=== PATIENT | female | born 1980 | race Hispanic/Latino ===

== ENCOUNTER 2019-06-28 15:49 | Inpatient (IN) ==
[2019-06-28] MEDS ORDERED: FENTANYL IV ONE (16:05)
[2019-06-28] MEDS ORDERED: ZOFRAN IV ONE (16:05)
[2019-06-28] MEDS ORDERED: NS 1,000 ML IV ONE (16:10)
[2019-06-28] MEDS ORDERED: PROTONIX 80 MG in NS 80 ML IV ONE ×2 (16:11→17:00)
[2019-06-28] MEDS ORDERED: PROTONIX 80 MG in NS 80 ML IV SCH (16:15)
[2019-06-28] MEDS ORDERED: SANDOSTATIN 500 MICROGM in D5W 100 ML IV SCH (16:15)
[2019-06-28] MEDS: NS 1,000 ML IV ONE ×2 (16:34→17:03)
[2019-06-28 16:35] LABS: URINE SOURCE CLEAN CATCH
[2019-06-28 16:55] LABS: INR 1.15; PROTIME 15.3 Seconds (11.0-16.0)
[2019-06-28 16:56] LABS: PTT 29.7 Seconds (22.3-41.8)
[2019-06-28 17:07] LABS: BASO# 0.02 X1000 (0.0-0.2); BASO% 0.4 % (0.0-0.8); EOS% 14.6 % (0.0-10.0); HEMOGLOBIN 8.2 g/dL (12.0-16.0); IMM GRAN# 0.01 X1000 (0.0-0.04); IMM GRAN% 0.2 % (0.0-0.5); LYMPH# 0.75 X1000 (1.2-3.4); LYMPH% 13.7 % (20.5-51.1); MCH 29.9 PG (27-31); MCHC 30.4 g/dL (33-37); MCV 98.5 FL (81-99); MONO# 0.34 X1000 (0.11-0.59); MONO% 6.2 % (1.7-9.3); MPV 10.7 FL (7.4-10.4); NEUT# 3.55 X1000 (1.4-6.5); NEUT% 64.9 % (42.2-75.2); PLT 57 X1000 (130-400); RBC 2.74 XMIL (4.2-5.4); RDW 14.9 % (11.5-14.5); WBC 5.47 X1000 (4.8-10.8)
[2019-06-28 17:10] LABS: COLOR YELLOW
[2019-06-28 17:11] LABS: BILIRUBIN URINE NEGATIVE (NEGATIVE); BLOOD URINE NEGATIVE (NEGATIVE); GLUCOSE URINE NEGATIVE (NEGATIVE); KETONE URINE 60 mg/dL (NEGATIVE); PH URINE 6.5; PROTEIN URINE TRACE mg/dL (NEGATIVE); SP GRAVITY URINE 1.015; TURBIDITY URINE CLEAR (CLEAR); UROBILINOGEN URINE 2 mg/dL (NORMAL)
[2019-06-28 17:12] LABS: LEUKOCYTES URINE TRACE (NEGATIVE); NITRITE URINE NEGATIVE (NEGATIVE); UR EPITHELIAL CELLS <10 /HPF (<10); URINE BACTERIA 1+ /HPF; URINE WBC <10 /HPF (<10)
[2019-06-28 17:17] LABS: OCCULT BLOOD 1 POSITIVE (NEGATIVE)
[2019-06-28 17:17] LABS: AGAP 11; ALBUMIN 3.9 g/dL (3.5-5.0); ALKALINE PHOSPHATASE 560 U/L (32-104); BUN 30 mg/dL (8-22); CALCIUM 8.6 mg/dL (8.8-10.2); CHLORIDE 108 mmol/L (98-107); COSMO 285; CREATININE 0.4 mg/dL (0.5-0.9); ESTIMATED GFR > 60; GLUCOSE 119 mg/dL (70-104); GOT 78 U/L (10-30); GPT 68 U/L (10-36); LIPASE 46 U/L (13-60); POTASSIUM 4.3 mmol/L (3.5-5.1); SODIUM 139 mmol/L (136-145); TCO2 20 mmol/L (25-35); TOTAL PROTEIN 6.7 g/dL (6.3-8.3)
--- NOTE | 2019-06-28 17:46 | PROVIDER DOCUMENTATION ---
This chart was entered by Remedios Adamson Scribe, acting as scribe for Joao William MD. HPI-Abdominal Pain/GI Problem - General Chief Complaint: Abdominal Pain Stated Complaint: ABD PAIN Time Seen by Provider: 06/28/19 15:59 Source: patient, family () Allergies/Adverse Reactions: Patient Allergies Allergy/AdvReac Type Severity Reaction Status Date / Time No Known Allergies Allergy Verified 06/28/19 15:57 - History of Present Illness-ABD Nature of Presenting Problems: Pt is a 38 yohf brought into the ed by her complaining of chest and abdominal pain. Pt has vomited x1 with coffee colored emesis today and had x2 black tar colored bowel movements since yesterday. pt states she has liver problems. Pt is alert and nontoxic in appearance. Abdominal Pain Onset Location: reports: RUQ, epigastric Pain Radiation: reports: no radiation, chest Quality of Pain: reports: aching Severity in ED: reports: mild Onset/Duration: reports: gradual, 24 hours ago Timing: reports: still present Activities at Onset: reports: light activity Associated Symptoms: reports: chest pain, vomiting (x1) Last BM: 24 hours ago Dark Stools Present?: reports: black, tarry # of Vomiting Episodes: 1 Emesis Description: reports: coffee grounds Similar Symptoms Previously?: Yes (pt sees for non-alcoholic cirrhosis of the liver) Recently seen or treated by another doctor?: Yes (was seen a couple of months ago for condition) Review of Systems - Adult - REVIEW OF SYSTEMS - ADULT Constitutional: denies: chills, fever Eyes: reports: no symptoms reported Ears, Nose, Mouth & Throat: reports: see HPI, other (esophageal varices) Cardiovascular: reports: see HPI, chest pain. denies: syncope Respiratory: reports: no symptoms reported Gastrointestinal: reports: abdominal pain, vomiting (x1), other (x2 black and tarry) Genitourinary: reports: no symptoms reported Musculoskeletal: reports: no symptoms reported Integumentary: reports: no symptoms reported Neurological: reports: see HPI. denies: syncope Psychiatric: reports: no symptoms reported Endocrine: reports: no symptoms reported Hematologic/Lymphatic: reports: no symptoms reported Allergic/Immunologic: reports: no symptoms reported All Other Systems: Reviewed and Negative Past History - Adult - PAST MEDICAL HISTORY-ADULT Review of Records: reports: Old Records Reviewed, Nursing Assessment Review, Medications Reviewed, Social history reviewed & non-contributory. Major Childhood Illnesses: reports: denies history Cardiovascular: reports: denies history Respiratory: reports: denies history Gastrointestinal: reports: liver disease (non-alcoholic cirrhosis) Genitourinary: reports: denies history Musculoskeletal: reports: chronic pain (takes Motrin to control) Neurological: reports: headaches/migraines (takes Motrin to control) Endocrine/Immune: reports: denies history Other Conditions: reports: denies history - IMMUNIZATION STATUS Childhood Immunizations: See Nurse Assessment Flu Vaccine: See Nurse Assessment - SOCIAL HISTORY Smoking: non-smoker Substance Use: denies Living Situation: family () Physical Exam-General - PHYSICAL EXAM-ADULT Initial Vital Signs Reviewed: Yes (HR 121) - CONSTITUTIONAL General Appearance: appears well, alert, no apparent distress - EYES Eyes: PERRL/EOMI, pale conjunctivae - HEAD, EARS, NOSE, MOUTH & THROAT HENMT: normocephalic/atraumatic, other (dry mucus membranes). negative: moist mucous membranes - NECK Neck: non-tender, full range of motion, supple - RESPIRATORY Respiratory: lungs clear, normal breath sounds, no pleuratic chest pain, no respiratory distress, no accessory muscle use - CARDIOVASCULAR Cardiovascular: normal peripheral pulses, regular rate, rhythm, no edema, no gallop, no JVD, no murmur, tachycardia - GASTROINTESTINAL (ABDOMEN) Abdominal Exam: soft, distended, tenderness (RUQ), other (positive fluid wave of ascites) - GENITOURINARY Rectal Exam: normal rectal tone, black stool Hemoccult Exam: heme positive stool - MUSCULOSKELETAL Back Exam: normal inspection Extremity: normal range of motion, non-tender, normal gait, normal inspection - SKIN Integumentary: normal color, normal turgor, warm/dry - NEUROLOGIC Neurologic: lens matcher II-XII nml as tested, grossly normal, no motor/sensory deficits, other (no asterixis) - PSYCHIATRIC Psych/Mental Status: normal mood/affect, normal thought content, normal thought process, oriented x 3 Progress - PLAN OF CARE/RESULTS Progress/Plan/Lab Results: Vital Signs - 8 hr 06/28/19 15:53 Temperature 98.6 F Pulse Rate 121 H Respiratory Rate 18 Blood Pressure 115/71 O2 Sat by Pulse Oximetry 100 Bedside Urine ED: Urine Bedside Start: 06/28/19 15:58 Freq: ORDERED Status: Active Protocol: Activity Type Activity Date Activity User E-Sign Co-Sign Detail Recorded Client Recorded Date Recorded By Document 06/28/19 16:11 [id number] 06/28/19 16:11 [id number] 06/28/19 16:11 Point of Care [Bedside Point of Care] -Lot # [id number] - Results Negative -Control Line Visible? Yes Orders Category Date Time Status ED: Urine Bedside ORDERED Care 06/28/19 15:58 Active NG/OG/Feeding Tube Insertion ORDERED Care 06/28/19 16:04 Active Saline Loc DIRECTED Care 06/28/19 15:58 Active NPO Diet 06/28/19 15:58 Active CHEST-PORTABLE [RAD] Stat Exams 06/28/19 16:04 Ordered KUB ABDOMEN [RAD] Stat Exams 06/28/19 16:04 Ordered AMYLASE [CHEM] Stat Lab 06/28/19 15:58 Ordered CBC WITH ELECTRONIC DIFF [HEME] Stat Lab 06/28/19 15:58 Ordered COMPREHENSIVE METABOLIC PANEL [CHEM] Stat Lab 06/28/19 15:58 Uncollected LIPASE [CHEM] Stat Lab 06/28/19 15:58 Uncollected OCCULT BLOOD SCREEN STOOL PL Stat Lab 06/28/19 16:06 Ordered PROTIME WITH INR [COAG] Stat Lab 06/28/19 16:06 Uncollected PTT [COAG] Stat Lab 06/28/19 16:06 Uncollected TYPE & SCREEN [BBK] Stat Lab 06/28/19 16:04 Uncollected URINALYSIS W/POSS RFLX CULT [URINALYSIS] Stat Lab 06/28/19 15:58 Uncollected 0.9% Sodium Chloride Inj [Ns] 1,000 ml Med 06/28/19 16:05 Active IV 999 mls/hr 0.9% Sodium Chloride Inj [Ns] 1,000 ml Med 06/28/19 16:10 Active IV 999 mls/hr 0.9% Sodium Chloride Inj [Ns] 80 ml Med 06/28/19 16:15 Active Pantoprazole [Protonix] 80 mg IV 10 mls/hr Dextrose 5%-Water Inj [D5w] 100 ml Med 06/28/19 16:15 Active Octreotide Acetate [Sandostatin] 500 microgm IV 10 mls/hr Fentanyl Med 06/28/19 16:05 Discontinued 25 microgm IV NOW ONE Ondansetron [Zofran] Med 06/28/19 16:05 Discontinued 4 mg IV NOW ONE Pantoprazole [Protonix] Med 06/29/19 16:06 Discontinued 40 mg IV Q12H Pantoprazole [Protonix] 80 mg Med 06/28/19 16:11 Discontinued 0.9% Sodium Chloride Inj [Ns] 80 ml IV NOW Pantoprazole [Protonix] 80 mg Med 06/28/19 17:00 Active 0.9% Sodium Chloride Inj [Ns] 80 ml IV NOW Result Diagrams: 06/28/19 16:25 06/28/19 16:25 - REASSESSMENT Reassessment #1 Time Reassessed: 17:27 Status: improving (GIven ivf, fentanyl/zofran (pain gone). NGT ordered. Given IV protonix and octreitide drips. T&C done. Still tachycardic, not hypotensive) - XRAY 1 XRAY Study: Chest Impression: See EMR Report 2 XRAY Study: Abdomen Impression: See EMR Report - CONSULTS/PCP/HOSPITALIST Notification #1 *Consult/PCP/Hospitalist*: Marija (hospitalist) paged at [phone] Time Discussed: 17:30 Consult Disposition: other (Call hosiptalist from [place]) #2 Consult: Henrry (GI paged) at [phone] #3 Consult: Kimberli Time Discussed: 17:46 Consult Disposition: Admit (at [facility]) Departure - Departure Date of Disposition Decision: 06/28/19 Time of Disposition Decision: 17:28 DIAGNOSIS: Upper gastrointestinal bleeding, Anemia associated with acute blood loss, Non- alcoholic cirrhosis, History of esophageal varices Disposition: ADMITTED INPATIENT 09 Certified Medical Emergency: Emergent Condition: Fair Referrals and Follow-Ups: Josefina Rodriguez MD [Primary Care Provider] - - Critical Care Note This patient required my direct & personal management of CC.: Yes Total Time (mins): 45 Critical Care Statement: This patient required my direct personal management to treat or rule out processes, the absence of which, could potentiallly result in sudden, clinically significant life or limb threatening deterioration. Attestation - Physician/ JAK Attestation Patient care was provided by Advanced Practice Provider:: No The physician spent face to face time with patient:: Yes Advanced Practice Provider documentation review:: Supervising physician onsite and consulted in the evaluation and care of this patient. The physician did have a face to face encounter with the patient. This chart was documented by the indicated scribe, (Remedios Adamson, Scribe) and accurately reflects the services I performed and decisions made by , Joao William MD, as attested by the provider's signature.
[2019-06-28] MEDS ORDERED: VITAMIN K 10 MG in NS 50 ML IV ONE ×2 (17:58→22:00)
--- NOTE | 2019-06-28 19:05 | Diag Imaging Result Doc PS360 ---
EXAM: KUB ABDOMEN INDICATION: GI bleeding TECHNIQUE: One view COMPARISON: None. FINDINGS: There is nonspecific mild gaseous distention of bowel at the mid abdomen that appears to be transverse colon. There is nothing that would necessarily indicate obstruction. No large volume free abdominal gas is appreciated. There is no evidence of organomegaly. IMPRESSION: Nonspecific abdomen. Electronically signed by Hira Fish 06/28/2019 7:02 PM
--- NOTE | 2019-06-28 19:07 | Diag Imaging Result Doc PS360 ---
EXAM: CHEST-PORTABLE INDICATION: NGT placement TECHNIQUE: One view COMPARISON: None. FINDINGS: There is mild elevation of the right hemidiaphragm. The recently placed NG tube projects below the diaphragm with the tip likely in the lumen of the stomach in the expected position. The lungs are grossly clear. There is no discrete pleural fluid collection or pneumothorax. The cardiomediastinal silhouette and central vasculature are grossly unremarkable. IMPRESSION: Newly placed NG tube in expected position as described. Electronically signed by Hira Fish 06/28/2019 7:05 PM
[2019-06-28] MEDS: ZOSYN 3.375 GM in NS 50 ML IV SCH (20:03)
[2019-06-28] MEDS: NS 1,000 ML IV SCH (20:03)
[2019-06-28] MEDS: MORPHINE IV PRN (20:22)
[2019-06-28 22:12] LABS: HEMATOCRIT 23.4 % (37.0-47.0); HEMOGLOBIN 7.2 g/dL (12.0-16.0)
[2019-06-29] MEDS: ZOFRAN IV PRN ×2 (00:12→21:48)
[2019-06-29] MEDS: MORPHINE IV PRN ×4 (00:12→21:47)
[2019-06-29] MEDS ORDERED: NS 500 ML ONE (00:25)
[2019-06-29] MEDS: ZOSYN 3.375 GM in NS 50 ML IV SCH ×4 (01:52→19:55)
[2019-06-29] MEDS: PROTONIX 80 MG in NS 80 ML IV SCH ×3 (02:31→21:49)
[2019-06-29] MEDS: SANDOSTATIN 500 MICROGM in D5W 100 ML IV SCH ×3 (02:31→21:49)
[2019-06-29] MEDS: NS 1,000 ML IV SCH ×3 (06:36→15:32)
--- NOTE | 2019-06-29 06:40 | PROGRESS NOTE ---
DATE: 06/29/2019 SUBJECTIVE: This patient seems to be feeling better. She is completely awake, alert, and oriented x3. Her is at the bedside. Vital signs are stable. She is slightly tachycardic. She received 1 unit of packed red blood cells, pending new lab work at this moment. She has an NG tube and that has been placed during the night, and we are getting dark old blood through it, like coffee-ground. OBJECTIVE: Vital Signs: Temperature 99.2 degrees, pulse 98, respiratory rate 20, blood pressure 102/66, oxygen saturation 97% on room air. HEENT: Head normocephalic, no trauma. PERRLA. Icteric sclera. Neck: Supple. No JVD. No masses. Central trachea. Chest: Clear to auscultation. No wheezing. No rales. Abdomen: Soft and slightly distended. Decreased bowel sounds 5%. Extremities: No edema, no clubbing, no cyanosis. Neurological examination: The patient is alert and oriented x3. No focal neurological deficits. LABORATORY: Pending lab work at this moment: Last hemoglobin was 7.2 at 10:03 p.m. yesterday. Pending new lab work, she received a unit of PRBC. ASSESSMENT AND PLAN: 1. Gastrointestinal bleed. We have consulted Gastroenterology Department to evaluate this patient. She has been placed on Protonix drip, as well as octreotide drip. She has been placed on nothing by mouth for possible endoscopic procedure today. A nasogastric tube has been placed, and we were getting some old blood coming out from this tube. She does have a history of liver cirrhosis, but I am not sure about the cause of this since she is not a drinker. 2. Anemia, post hemorrhagic. Her last hemoglobin was 7.2, status post 1 packed red blood cell now pending new lab work. 3. Liver cirrhosis, unclear etiology. Gastroenterology Department has been consulted. 4. Elevated liver function tests likely due to liver cirrhosis. We will continue to monitor this patient in the ICU, pending Gastroenterology evaluation and recommendations. cc: Saman Traore MD
[2019-06-29 07:01] LABS: HEMOGLOBIN 7.6 g/dL (12.0-16.0); MCH 30.2 PG (27-31); MCHC 30.4 g/dL (33-37); MCV 99.2 FL (81-99); MPV 11.5 FL (7.4-10.4); RBC 2.52 XMIL (4.2-5.4); WBC 4.21 X1000 (4.8-10.8)
[2019-06-29] MEDS ORDERED: NS 500 ML IV ONE (07:29)
--- NOTE | 2019-06-29 08:34 | HISTORY AND PHYSICAL ---
CHIEF COMPLAINT: Abdominal pain. HISTORY OF PRESENT ILLNESS: Ms. Ruiz is a 38-year-old female. She was brought to the ER at [place] by her , complaining of chest and abdominal pain. She had vomited x1 with coffee-ground emesis earlier today and had 2 black tarry stools since yesterday. The patient stated that she has nonalcoholic cirrhosis of the liver. The patient is primarily Bangladeshi speaking; however, the speaks Estonian and translated. She has chronic pain and migraines as well and takes Motrin to control the pain. I spoke with the , telling him that this was not a great option, as bleeding is concerned; however, Tylenol also with liver disease is not a great option. She has no other real medical history other than varices which were banded recently, I believe, in the last [address] Rodriguez. At any rate, she was found to be anemic and tachycardic. She will be placed in the ICU at [facility] for further evaluation. PAST MEDICAL HISTORY: See HPI. PAST SURGICAL HISTORY: Banding of varices. SOCIAL HISTORY: Lives with . She is not a heavy drinker. She previously has drunk maybe 10 beers a year, very infrequently. Denies tobacco or illicit drugs. FAMILY HISTORY: denies any significant family history. ALLERGIES: No known drug allergies. HOME MEDICATIONS: A list of home medications has not been reconciled. The stated that she only takes Motrin. REVIEW OF SYSTEMS: A 14-point review of systems was conducted with the patient. She has abdominal pain, nausea and vomiting. She did state that she had black tarry stools, no diarrhea. All other systems reviewed and found to be negative. PHYSICAL EXAMINATION: VITAL SIGNS: Temperature is 97.9, pulse 104, respirations 21, blood pressure 110/67, oxygen saturation 99% on room air. GENERAL: A 38-year-old female lying on the ER stretcher. She is in no acute distress at this time. HEENT: Head is atraumatic and normocephalic. Pupils are equal, round and reactive to light. Extraocular eye movements intact. Sclerae anicteric. Conjunctivae pale. Oral mucosa is dry. NECK: Supple. No JVD. No thyromegaly. Trachea is midline. No cervical lymphadenopathy. CARDIAC: S1 and S2 appreciated. No murmurs, gallops or rubs. LUNGS: Clear to auscultation bilaterally. No rhonchi, wheezes or rales. Symmetric rise and fall with respirations. ABDOMEN: Soft, nondistended. Diffusely tender to palpation. Bowel sounds present in all 4 quadrants and normoactive. No pulsatile masses or organomegaly. Positive fluid wave test. EXTREMITIES: No cyanosis, clubbing or edema. There are 2+ pedal pulses bilaterally. GENITOURINARY: No bladder distention. The patient voids. Otherwise deferred. NEUROLOGICAL: Alert and oriented x3. Cranial nerves II through XII appear to be grossly intact. DIAGNOSTIC DATA: Chest x-ray shows NG tube in good position, otherwise no acute disease. Abdominal x-ray nonspecific abdomen. Laboratory data shows WBC of 5.47, hemoglobin 8.2, hematocrit 27, platelet count 57. Sodium is 139, potassium 4.3, chloride 108, carbon dioxide 20, BUN is 30, creatinine 0.4, glucose 119. Total bilirubin 1.80, AST is 78, ALT is 68, alkaline phosphatase 560. Urine with trace leukocytes, less than 10 WBCs, 1+ bacteria. Occult stool positive. ASSESSMENT: 1. Gastrointestinal bleed with known varices. 2. Nonalcoholic cirrhosis. 3. Anemia secondary to 1 and 2. 4. Volume depletion. 5. Questionable urinary tract infection. PLAN: Admit the patient to ICU. We will start her on Zosyn as it has found to be useful in patients with varices. We will also treat a urinary tract infection if it is a true urinary tract infection. We will give morphine 2 mg IV q.3 hours as needed for pain. We will start the patient on Sandostatin and Protonix drips. Consult GI. We will check serial hemoglobin and hematocrit, transfuse if needed. Further recommendations based on the patient's clinical course. Dictated by JAY Cutler for Sahil Martell MD I have performed a face to face diagnostic evaluation. Labs/Xrays -reviewed. Exam- Chest- clear , CV- regular. A/P- GI Bleed- Admit, NPO, GI consult, Protonix drip. Dr. Martell cc: JAY Cutler MD [facility]
[2019-06-29 08:48] LABS: AGAP 13; ALB/GLOB RATIO 1.4; ALBUMIN 3.3 g/dL (3.5-5.0); ALKALINE PHOSPHATASE 462 U/L (32-104); BUN 23 mg/dL (8-22); CALCIUM 7.9 mg/dL (8.8-10.2); CHLORIDE 110 mmol/L (98-107); COSMO 288; CREATININE 0.7 mg/dL (0.5-0.9); ESTIMATED GFR > 60; GLUCOSE 113 mg/dL (70-104); GOT 65 U/L (10-30); GPT 51 U/L (10-36); POTASSIUM 4.1 mmol/L (3.5-5.1); SODIUM 142 mmol/L (136-145); TCO2 19 mmol/L (25-35); TOTAL BILIRUBIN 2.12 mg/dL (0.20-1.00); TOTAL PROTEIN 5.6 g/dL (6.3-8.3)
[2019-06-29 08:59] LABS: INR 1.28; PROTIME 16.2 Seconds (11.0-16.0); PTT 29.7 Seconds (22.3-41.8)
--- NOTE | 2019-06-29 10:34 | GASTROENTEROLOGY CONSULTATION ---
DATE: 06/29/2019 REASON FOR CONSULT: GI bleed and cirrhosis. HISTORY OF PRESENT ILLNESS: Ms. Ruiz is a 38-year-old female. She does not speak any Mongolian. I had to use the core sticker line. The person I spoke to was Jazmine, and her number was [phone]. Ms. Ruiz mentioned that she has been having abdominal pain, nausea and vomiting, threw up a lot. She mentioned noticing blood in her stools and blood in her vomit which looked bright red blood and sometimes coffee-ground, and her stools were black and tarry. The patient did mention that she has a history of liver cirrhosis and has denied drinking any alcohol. The patient's was at the bedside. The patient mentioned that she does have anemia and history of migraines. The patient takes occasionally Motrin and Tylenol for her pain. Patient sees Dr. Rodriguez, and he had performed an EGD on 04/23/2019. He had found some esophageal varices grade III and they were non bleeding. He also found an ulcer in the antrum. The patient complained that she started having this nausea and vomiting from 06/27/2019 night, but denied any fever, chills, or shortness of breath. Today, she denied any nausea, vomiting, and denied having any bowel movements, but she did mention that her last bowel movement was yesterday, and did not notice any blood yesterday. The patient also mentioned that she recently had a liver biopsy done 2 weeks ago and it was negative. PAST MEDICAL HISTORY: Liver cirrhosis, anemia, migraines. PAST SURGICAL HISTORY: The patient had two sections, EGD and liver biopsy ALLERGIES: No known drug allergies. SOCIAL HISTORY: She is , has 2 kids. She has denied any alcohol, tobacco use, or illicit drug use. FAMILY HISTORY: No significant GI malignancies. HOME MEDICATIONS: The patient takes occasional Motrin and Tylenol. REVIEW OF SYSTEMS: As per HPI. Otherwise, 12-point review of systems is negative. PHYSICAL EXAMINATION: Vital Signs: Temperature 98 degrees, pulse 88, respirations 20, blood pressure 101/71, oxygen saturation 98% on room air. The patient's weight is 123 pounds. BMI is 24.1 kg/m2. General: The patient is alert and oriented x3. Does not speak any Mongolian. She only speaks Bruneian. at the bedside. Had to use the core sticker. No acute distress. HEENT: Pale conjunctivae. Mild icterus. PERR, has NG tube in place. Neck: Supple. Lungs: Clear to auscultation in the anterior cuevas. Cardiovascular: Regular rate and rhythm. Abdomen: Mildly distended, soft. Generalized tenderness. Active bowel sounds heard in all 4 quadrants. Extremities: No clubbing, no cyanosis, no edema. Pedal pulses 2+ present bilaterally. Neurologic: She is alert and oriented x3. Speaks only Bruneian. Nonfocal. Cranial nerves II through XII are grossly intact. IMAGING AND LABORATORY DATA: WBCs of 4.21, RBC 2.52, hemoglobin 7.6, hematocrit 25.0, platelet count is 36,000. PT 16.2, INR 1.28. Sodium 142, potassium 4.1, chloride 110, carbon dioxide 19, anion gap 13, BUN 23, creatinine 0.7, glucose 113, calcium 7.9. Total bilirubin 2.12, AST 65, ALT 51, alkaline phosphatase 462, albumin 3.3. Urinalysis yesterday showed trace of protein, ketones of 60, and trace of leukocytes. The patient's stool for occult blood was positive. Her abdominal x-ray on 06/28/2019 showed nonspecific abdomen. Chest x-ray showed newly placed NG tube in the expected position as described. IMPRESSION AND PLAN: GI bleed Hematemesis Melena Anemia Nausea and vomiting Nonalcoholic cryptogenic cirrhosis Migraines Esophageal varices H/o gastric ulcer PLAN: Ms. Ruiz is a 38-year-old, female, who only speaks Bruneian, has a history of nonalcoholic liver cirrhosis, anemia, and varices GI has been consulted for GI bleed and liver cirrhosis. An EGD was done today, patient had reflux esophagitis in the lower third of the esophagus and at the GEJ. There were 4 columns of large esophageal varices and varices in the middle third of the esophagus, lower third esophagus and at the GEJ. Patient also had portal hypertensive gastropathy in the gastric body, gastric fundus and cardia, the duodenal mucosa had no abnormalities. The patient is currently on IV fluids, normal saline at 100 mL. She is receiving antibiotic, Zosyn. She is on Protonix IV drip, 80 mg at 10 mL/hour, and the patient is also receiving Sandostatin 500 mcg at 10 mL/h. For her nausea and vomiting, she is on Zofran. Patient is currently NPO except ice chips. We will continue to watch her H & H and the goal is between 7-8 g/dl and if lower, transfuse PRBC's per protocol. We will watch her platelets and keep it >[id number] if actively bleeding. Patient needs to be transferred to [facility] for TIPSS for portal hypertensive gastropathy with intermittent oozing and large esophageal varices with distal esophagitis. Dr. Sales has discussed this plan with PCP and the family. This plan has been discussed with Dr. Sales. Thank you for your consult. Please call us for any further questions or concerns. Dictated by JAY Diaz for Tucker Sales MD cc: Tucker Sales MD I have seen and examined the patient myself and I agree with the above plan of care. Discussed the above with the patient and family and all questions were answered. Please call us with any further questions.I spoke to Dr Dutton in person and discussed the case. AILYN
[2019-06-29] MEDS ORDERED: DIPRIVAN 1% ONE (11:59)
[2019-06-29] MEDS ORDERED: XYLOCAINE-MPF 2% ONE (12:00)
--- NOTE | 2019-06-29 12:49 | ENDOSCOPY OPERATIVE NOTE ---
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 PROCEDURE PERFORMED: EGD, diagnostic MEDICATIONS: Per Anesthesia ESTIMATED BLOOD LOSS: None CONSENT: The patient understands the risks and benefits of the procedure and understands that these r isks include, but are not limited to: sedation, allergic reaction, infection, perforation and/or bleeding. Alternative means of evaluation and treatment include, among others: physical exam, x-rays, and/or surgical intervention. The patient elects to proceed with this endoscopic procedure. DESCRIPTION OF PROCEDURE: During pre-op preparation period all mechanical and medical equipment was c hecked for proper function. Hand hygiene and appropriate measures for infection prevention was taken. After the risks, benefits and alternatives of the procedure were thoroughly explained, Informed consent was verified, confirmed and timeout was successfully executed by the treatment team. The patient was anesthetized with topical anesthesia and the [id number] ([id number]) endoscope was introduced through the mouth and advanced to the second portion of the duoden um. Retroflexion was performed in the stomach and revealed no abnormalities. The gastroscope was then slowly withdraw n and removed. The patient's toleration of the procedure was good. ESOPHAGUS: Reflux esophagitis was found in the lower third of the esophagus and at the gastroesophage al junction. Esophagitis was LA Class B: One or more mucosal breaks > 5mm, but without continuity across mucosal f olds. There were 4 columns of large varices in the middle third of the esophagus, lower third esophagus, and at the ga stroesophageal junction. Zline at 40 cms. STOMACH: Moderate portal hypertensive gastropathy was found in the gastric body, gastric fundus, and cardia. DUODENUM: The duodenal mucosa showed no abnormalities in the duodenal bulb, 1st part duodenum, and 2n d part duodenum. ADVERSE EVENTS: There were no complications. IMPRESSIONS: 1. Reflux esophagitis in the lower third of the esophagus and at the gastroesophage al junction 2. There were 4 columns of large esophageal varices and varices in the middle third of the esophagus , lower third esophagus, and at the gastroesophageal junction 3. Portal hypertensive gastropathy was found in the gastric body, gastric fundus, and cardia 4. The duodenal mucosa showed no abnormalities in the duodenal bulb, 1st part duodenum, and 2nd part duodenum RECOMMENDATIONS: Continue Protonix drip for 72 hours then IV BID Continue Sandostatin Drip at 50 mcg per hour for 72 hours NPO except Ice chips Transfuse to keep Hb goal of 7-8g/dl Transfuse to keep Platelets>50k if actively bleeding Watch CBC every 6 hours for 48 hours Transfer to [facility] for TIPSS for Portal Hypertensive gastropathy with intermittent Oozin g, Large Esophageal varices and Reflux esophagitis. Discussed with Dr Duttno in the OR REPEAT EXAM: Tucker Sales MD eSigned: Tucker Sales MD 06/29/2019 12:49 PM CC: CPT CODES: 81137 Upper gastrointestinal endoscopy including esophagus, stomach, and either the du odenum and/or jejunum as appropriate; diagnostic, with or without collection of specimen(s) by brushing or washing (separate procedure) ICD CODES: The ICD and CPT codes recommended by this software are interpretations from the data that the [facility] staff has captured with the software. The verification of the translation of this report to the ICD and CPT co hanna and modifiers is the sole responsibility of the health care institution and practicing physician where this report was generated. [employer] will not be held responsible for the validity of the ICD and CPT codes i ncluded on this report. [employer] assumes no liability for data contained or not contained herein. CPT is a registered tra demark of the [employer]. PATIENT NAME: Missy Ruiz MR#: [id number]
[2019-06-29] MEDS ORDERED: VITAMIN K 10 MG in NS 50 ML IV SCH (14:00)
[2019-06-29 15:16] LABS: HEMATOCRIT 31.8 % (37.0-47.0); HEMOGLOBIN 10.2 g/dL (12.0-16.0); MCH 31.2 PG (27-31); MCHC 32.1 g/dL (33-37); MCV 97.2 FL (81-99); MPV 11.3 FL (7.4-10.4); RBC 3.27 XMIL (4.2-5.4); RDW 16.6 % (11.5-14.5); WBC 4.58 X1000 (4.8-10.8)
[2019-06-29] MEDS ORDERED: PROTONIX IV SCH (16:06)
[2019-06-29 20:57] LABS: HEMATOCRIT 28.7 % (37.0-47.0); HEMOGLOBIN 9.3 g/dL (12.0-16.0); MCH 31.2 PG (27-31); MCHC 32.4 g/dL (33-37); MCV 96.3 FL (81-99); MPV 11.1 FL (7.4-10.4); RBC 2.98 XMIL (4.2-5.4); RDW 16.8 % (11.5-14.5); WBC 3.64 X1000 (4.8-10.8)
[2019-06-30] MEDS: ZOSYN 3.375 GM in NS 50 ML IV SCH ×2 (01:22→07:28)
[2019-06-30] MEDS: NS 1,000 ML IV SCH ×2 (01:22→09:57)
[2019-06-30] MEDS: MORPHINE IV PRN ×2 (02:49→07:28)
[2019-06-30] MEDS: ZOFRAN IV PRN ×2 (02:50→07:28)
[2019-06-30 05:54] LABS: AGAP 12; ALB/GLOB RATIO 1.3; ALBUMIN 3.1 g/dL (3.5-5.0); ALKALINE PHOSPHATASE 381 U/L (32-104); BUN 17 mg/dL (8-22); CHLORIDE 111 mmol/L (98-107); COSMO 287; CREATININE 0.6 mg/dL (0.5-0.9); ESTIMATED GFR > 60; GLUCOSE 102 mg/dL (70-104); GOT 56 U/L (10-30); GPT 49 U/L (10-36); POTASSIUM 3.7 mmol/L (3.5-5.1); SODIUM 143 mmol/L (136-145); TCO2 20 mmol/L (25-35); TOTAL BILIRUBIN 2.47 mg/dL (0.20-1.00); TOTAL PROTEIN 5.4 g/dL (6.3-8.3)
[2019-06-30 06:31] LABS: HEMATOCRIT 28.2 % (37.0-47.0); HEMOGLOBIN 9.2 g/dL (12.0-16.0); MCH 31.8 PG (27-31); MCHC 32.6 g/dL (33-37); MCV 97.6 FL (81-99); MPV 11.1 FL (7.4-10.4); RBC 2.89 XMIL (4.2-5.4); RDW 16.9 % (11.5-14.5); WBC 3.64 X1000 (4.8-10.8)
[2019-06-30] MEDS: SANDOSTATIN 500 MICROGM in D5W 100 ML IV SCH (07:27)
[2019-06-30] MEDS: PROTONIX 80 MG in NS 80 ML IV SCH (07:28)
[2019-06-30 10:13] VITALS: BP 115/81
--- NOTE | 2019-06-30 17:32 | DISCHARGE SUMMARY ---
ADMISSION DATE: 06/28/2019 DISCHARGE DATE: 06/30/2019 DISCHARGE DIAGNOSES: 1. Portal hypertensive gastropathy found in the gastric body, fundus, and cardia. 2. There were 4 columns of large esophageal varices and varices in the mid middle 3rd of the esophagus, the lower 3rd of the esophagus, and the gastroesophageal junction. 3. Reflux esophagitis in the lower 3rd of the esophagus and at the gastroesophageal junction. 4. Gastrointestinal bleed. 5. Liver cirrhosis, unclear etiology. 6. Anemia, post hemorrhagic, status post 2 PRBCs. 7. Thrombocytopenia likely due to liver cirrhosis, status post 2 units of platelets. 8. Elevated liver function tests due to liver cirrhosis. PROCEDURES PERFORMED: 1. Abdomen x-ray dated 06/28/2019. Impression: Nonspecific abdomen. 2. Chest x-ray dated 06/28/2019. Impression: Newly placed NG tube in expected position. There is mild elevation of the right hemidiaphragm. Lungs are grossly clear. No pleural effusion or pneumothorax. 3. Endoscopic procedure dated 06/29/2019. Impression: Reflux esophagitis in the lower 3rd of the esophagus and the gastroesophageal junction. There were 4 columns of large esophageal varices and varices in the middle 3rd of the esophagus, lower 3rd esophagus, and the gastroesophageal junction. Portal hypertensive gastropathy was found in the gastric body, gastric fundus, and cardia. The duodenal mucosa showed no abnormalities in the duodenal bulb, 1st part of duodenum, and second part of the duodenum. HOSPITAL COURSE: A 38-year-old female presented initially to the ER at [facility] by her complaining of some chest discomfort and abdominal pain, nausea, vomiting x1 with coffee-grounds emesis earlier that day, and she had 2 black tarry stools since the day before admission. She was admitted on 06/28/2019. This patient had cryptogenic liver cirrhosis. Also she has a history of chronic migraines. She has no other real medical history other than varices which were banded recently. Her primary appraisal analyst is Dr. Rodriguez. In the emergency department she was found anemic and tachycardic. She was transferred to [facility] to be placed in the ICU. She also received a couple of units of blood. She was scoped, and I discussed the case with Dr. Sales. The endoscopic procedure showed reflux esophagitis in the lower 3rd of the esophagus and the gastroesophageal junction. There were 4 columns of large esophageal varices and varices in the middle 3rd, lower 3rd of the esophagus, and the gastroesophageal junction as well. Portal hypertensive gastropathy was found in the gastric body, gastric fundus, and cardia. The duodenal mucosa showed no abnormalities in the duodenal bulb, 1st and 2nd part of the duodenum. Dr. Sales immediately after seeing these problems called me. He will continue with octreotide drip and also pantoprazole drip. We kept this patient n.p.o. as well. We used Zofran for the nausea and vomiting, and we allowed this patient to take only ice chips. The hemoglobin and hematocrit was stable after the blood transfusion, but this patient needed to be transferred to [facility] for TIPS for portal hypertensive gastropathy with intermittent oozing of the stomach and large esophageal varices with distal esophagitis. I contacted [facility] yesterday, and they accepted the patient, but they did not have a bed in ICU to take this patient at that moment. Today in the morning I received a call from them again, and I presented the case to the hospitalist, who accepted the patient as well. So this patient has been transferred to [facility]. At the moment of her transportation, she was on a stable medical condition, but she really needs to get the TIPS procedure for further treatment/management. This procedure has been explained to the in detail, and hopefully she will get it as soon as possible. I told the to follow up with Dr. Rodriguez after the procedure maybe upon discharge from [facility]. I really appreciate their help. PHYSICAL EXAMINATION: Vitals: Temperature 97.9 degrees, pulse 76, respiratory rate 25, blood pressure 115/81. Oxygen saturation 100% on 2 L of nasal cannula. HEENT: Head normocephalic, no trauma. PERRLA. Some mild icteric sclerae. Neck: Supple. No JVD. No masses. Central trachea. Chest: Clear to auscultation. No wheezing. No rales. Abdomen: Soft. Slightly distended. Decreased bowel sounds a little bit. Extremities: No edema, no clubbing, no cyanosis. Neurological: The patient is alert and oriented x3. No focal neurological deficits. LABORATORY: WBC 3.6, hemoglobin 9.2, hematocrit 28.2, platelets 50,000. Sodium 143, potassium 3.7, chloride 111, bicarbonate 20, BUN 17, creatinine 0.6, glucose 102, calcium 8. Elevated LFTs. DISCHARGE MEDICATIONS: None. This will be adjusted by [facility]. Time discharging this patient, discussing the case with the , and taking care of the discussion with [facility] about 45 minutes. cc: Saman Traore MD
== END 2019-06-30 10:17 | disposition short-term general hospital (02) | DRG 378 ==
LOC: P.ED 15:49 → ICU 18:20
PROVIDERS: ATTEND Internal Medicine